=== PATIENT | male | born 1995 | race Two or more races ===

== ENCOUNTER 2022-08-26 23:43 | Emergency (ER) | payer OTHER ==
[~2022-08-26] VITALS: Ht 190.5 cm; Wt 74.8 kg
[2022-08-27] MEDS ORDERED: CEPHALEXIN500 MG PO (03:32)
== END 2022-08-27 03:44 | disposition home or self-care (01) ==
LOC: ER 23:43
DX: S01.412A Laceration without foreign body of left cheek and temporomandibular area, initial encounter (principal); W26.8XXA Contact with other sharp object(s), not elsewhere classified, initial encounter; Y93.9 Activity, unspecified; Y92.018 Other place in single-family (private) house as the place of occurrence of the external cause; Y99.9 Unspecified external cause status